=== PATIENT | female | born 1950 | race Caucasian/White ===

== ENCOUNTER 2017-03-23 13:05 | Emergency (ER) | payer MEDICARE, BC ==
[~2017-03-23] VITALS: Ht 162.6 cm; Wt 71.0 kg
[2017-03-23 13:11] VITALS: Ht 162.6 cm; Wt 71.0 kg
[2017-03-23] MEDS ORDERED: HYDROCODONE/APAP (5/325) TAB PO ONE (14:00)
--- NOTE | 2017-03-23 14:20 | ERD ---
ER Documentation Chief Complaint Date/Time DATE: 03/23/17 TIME: 14:18 Chief Complaint neck pain sp fall today, alert and oriented, redness to right side of face HPI This a 66-year-old female who presents to the emergency department today with her complaining of neck pain and some bruising around her right eye after falling earlier today. Patient states that she was cleaning up some cobwebs prior to getting the house ready for an open house when she lost her balance. States that she had a slight headache and felt dizzy afterwards. Denied any loss of consciousness. Denies any nausea or vomiting. Denies any fevers or chills or dysuria. She has not taken any medication for the pain. Denies any medical problems per ROS All systems reviewed and are negative except as per history of present illness. Medications Home Meds Active Scripts Neomycin Le/Bacitrac Zn/Poly (Triple Antibiotic Ointment) 1 Each Oint.pack, 1 EACH TP BID for 7 Days Prov:RADHA OCONNOR PA-C 03/23/17 Cyclobenzaprine Hcl* (Cyclobenzaprine Hcl*) 10 Mg Tablet, 10 MG PO QHS, #7 TAB Prov:RADHA OCONNOR PA-C 03/23/17 Naproxen* (Naprosyn*) 500 Mg Tablet, 500 MG PO BID Y for PAIN AND/OR INFLAMMATION, #30 TAB Prov:RADHA OCONNOR PA-C 03/23/17 Hydrocodone/Acetaminophen ([place] 5-325 Tablet) 1 Each Tablet, 1 TAB PO Q6H Y for PAIN, #10 TAB Prov:RADHA OCONNOR PA-C 03/23/17 PMhx/Soc History of Surgery: No Anesthesia Reaction: No Hx Neurological Disorder: No Hx Respiratory Disorders: No Hx Cardiac Disorders: No Hx Psychiatric Problems: No Hx Miscellaneous Medical Probl: No Hx Alcohol Use: No Hx Substance Use: No Hx Tobacco Use: No Physical Exam Vitals Vital Signs Date Time Temp Pulse Resp B/P Pulse Ox O2 Delivery O2 Flow Rate FiO2 03/23/17 13:11 97.7 76 18 150/91 97 Physical Exam Const: Sitting in wheelchair, no acute distress Head: Atraumatic Eyes: Normal Conjunctiva. PERRLA. EOM intact. Ecchymosis inferior orbit with tenderness to palpation ENT: Normal External Ears, Nose and Mouth.. No epistaxis. No hemotympanum. Neck: Full range of motion..~ No meningismus. Resp: Clear to auscultation bilaterally Cardio: Regular rate and rhythm, no murmurs Abd: Soft, non tender, non distended. Normal bowel sounds Skin: No petechiae or rashes right knee abrasion. Ecchymosis left forearm Back: No midline or flank tenderness Ext: No cyanosis, or edema full active range of motion at all joints. Neur: Awake and alert. Cranial nerves II through XII intact. No gait ataxia. Psych: Normal Mood and Affect Results 24 hrs Current Medications Medications (Trade) Dose Ordered Sig/Yasemin Route PRN Reason Start Time Stop Time Status Last Admin Dose Admin Acetaminophen/ Hydrocodone Bitart ([place] (5/325)) 1 tab ONCE ONCE PO 03/23/17 14:00 03/23/17 14:01 DC 03/23/17 13:57 DIAGNOSTIC IMAGING REPORT Patient: SAMMY RODRIGUEZ : 1950 Age: 66 Sex: F MR #: [id number] DOS: 03/23/17 0000 Ordering MD: RADHA OCONNOR PA-C Location: [facility] Room/Bed: PROCEDURE: CT Brain without contrast. CLINICAL INDICATION: Headache without trauma or fall TECHNIQUE: A CT of the brain was performed on a [employer] 64-slice CT scanner utilizing axial imaging from the skull base through the vertex without IV contrast. Multiplanar reformatted images were made. Images were reviewed on a PACS workstation. The CTDIvol is 43.58 mGy and the DLP is 720.23 mGycm. One of the following 3 dose reduction techniques were used: Automated exposure control; adjustment of the mA and/or kV according to patient size; or use of iterative reconstruction technique. COMPARISON: None available FINDINGS: There is no intracranial hemorrhage, mass effect, or midline shift. No extra- axial fluid collection is seen. The ventricles and sulci are age appropriate. Mild diffuse volume loss is present. The whalen-white matter junction is preserved. Mild decreased attenuation is present in the bilateral centrum semiovale and periventricular white matter compatible with mild chronic small vessel ischemic disease . Vascular calcifications are present of the bilateral intracranial internal carotid arteries. The visualized scalp and calvarium are normal. The bilateral orbits are normal. The bilateral paranasal sinuses, mastoid air cells and middle ear cavities are clear. IMPRESSION: 1. No evidence of acute intracranial hemorrhage, infarcts or acute intracranial pathology. 2. Mild chronic microvascular ischemic disease and diffuse volume loss 3. Mild atherosclerotic vascular disease RPTAT: [facility] .Yvette Parks MD, MD Date Time Electronically viewed and signed by .Yvette Parks MD, MD on 03/23/2017 14: 24 .C/ CC: RADHA OCONNOR PA-C DIAGNOSTIC IMAGING REPORT Patient: SAMMY RODRIGUEZ : 1950 Age: 66 Sex: F MR #: [id number] DOS: 03/23/17 0000 Ordering MD: RADHA OCONNOR PA-C Location: [facility] Room/Bed: PROCEDURE: CT Maxillofacial without Contrast CLINICAL INDICATION: Trauma, fall TECHNIQUE: Transaxial images were obtained through the maxillofacial region on a multi-slice scanner without the intravenous contrast administration. Sagittal and coronal re-formations were subsequently reconstructed. One or more of the following dose reduction techniques were used: - Automated exposure control. - Adjustment of the mA and/or kV according to patient size. - Use of iterative reconstruction technique. Radiation dose: CTDIvol = 43.58 mGy; DLP = 720.23 mGy-cm. COMPARISON: No prior studies are available for comparison. FINDINGS: Osseous structures: There is a nonaggressive appearing lesion with periosteal reaction seen along the anterior body of the mandible measuring 2.7 cm and medial lateral dimension, 0.5 cm in AP diameter and 1.3 cm in cranial caudad dimension. There is sclerosis involving the right lateral C4 vertebral body extending into the pedicle and lateral mass suspicious for a bone island. Mild degenerative cervical spine changes are noted. The osseous elements otherwise appear intact. Paranasal sinuses: Mucoperiosteal thickening is seen within the left maxillary antrum. The remaining paranasal sinuses are well-aerated. Mastoid air cells: Appear well pneumatized. Temporomandibular joints: Appear unremarkable. Orbits: The ocular globes, optic nerves, and intraorbital contents appear unremarkable. Soft tissues: Appear unremarkable. IMPRESSION: 1. There is a nonaggressive hypodensity seen at the anterior midline mandibular body measuring 2.7 x 1.3 x 0.5 cm with anterior periosteal reaction. This possibly represents an old subperiosteal hematoma. No acute fracture or osseous destruction is identified. 2. Mucoperiosteal thickening seen within the left maxillary sinus. 3. Degenerative cervical spine changes. Physician Gisella Date Time Electronically viewed and signed by Physician Gisella on 03/23/2017 14:34 RH/ CC: RADHA OCONNOR PA-C DIAGNOSTIC IMAGING REPORT Patient: SAMMY RODRIGUEZ : 1950 Age: 66 Sex: F MR #: [id number] DOS: 03/23/17 0000 Ordering MD: RADHA OCONNOR PA-C Location: [facility] Room/Bed: PROCEDURE: CT Cervical Spine. CLINICAL INDICATION: Pain without trauma or fall TECHNIQUE: A CT of the cervical spine was performed on a [employer] 64-slice CT scanner utilizing high-resolution axial imaging from the skull base through the cervical thoracic junction. Sagittal, coronal, and multiplanar reformatted images were made. CTDI mGy and DLP mGy-cm. One of the following 3 dose reduction techniques were used during this CT examination: automated exposure control; adjustment of the mA and /or kV according to patient size; or use of iterative reconstruciton technique COMPARISON: None available FINDINGS: There is straightening of the normal cervical lordosis . The visualized vertebral bodies are normal in height. The presence of a sclerotic or ossific density measuring 7 mm in transverse dimensions is present in the right C4 vertebral body and extending into the right pedicle. This may represent an enostoses, benign lesion however metastasis is not excluded. Consider MR to further evaluate. The intervertebral discs demonstrate severe disk space height loss and degenerative plate changes at C5-6 and moderate at C6-7. The posterior elements are intact and well aligned. The prevertebral soft tissues imaged are normal. The bilateral thyroid lobes and lung apices are clear. The specific axial levels are as follows: Occiput to C2: The visualized posterior fossa, skull base and bilateral mastoid air cells are clear. Atlantoaxial degenerative changes are present. No evidence for spinal canal stenosis is present. C2-3: The intervertebral discs is normal. Mild 3 mm broad-based bulge is present. The central canal, subarticular recess and neural foramen are patent. C3-4: Mild broad-based bulge is present the central canal, subarticular recess , and right neural foramen are patent. Mild left uncovertebral osteophyte and facet arthropathy contribute to mild left neural foraminal stenosis. C4-5: A 3 mm broad-based bulge is present. Left greater than right uncovertebral osteoarthropathy and facet arthropathy is present. AP canal dimension is 9 mm. This results in a mild central canal stenosis, bilateral subarticular recess stenosis, moderate to severe left and mild right neural foraminal stenosis. C5-6: Severe disk space height loss and degenerative endplate changes at C5-6 are present. Mild osteophytic bar and bulge is present. Bilateral uncovertebral osteophytes and facet arthropathy is present. AP canal dimension is 7.9 mm. This results in a moderate central canal stenosis, bilateral subarticular recess stenosis and severe bilateral neural foraminal stenosis. C6-7: Moderate disk space height loss degenerative endplate and disk changes are present. A 3 mm mild to moderate osteophytic bar and bulge is present. Bilateral uncovertebral osteophytes and facet arthropathy is present . AP canal dimension is 8.6 mm. This results in a mild central canal stenosis., bilateral subarticular recess stenosis and mild bilateral neural foraminal stenosis. C7-T1: The intervertebral discs is normal. The central canal, subarticular recess and neural foramen are patent. IMPRESSION: 1. No acute fractures or traumatic subluxations. 2. Straightening of the normal cervical lordosis 3. 7 mm right C4 vertebral body and pedicular indeterminate sclerotic lesion. Recommend additional imaging with MRI and bone scan as indicated. 4. Multilevel broad-based disk osteophyte complexes at the C2-3 through C6-7 levels with moderate central canal stenosis at C5-6 and mild at C4-5 and C6-7. 5. Multilevel neural foraminal stenosis at the C3-4 through C6-7 levels as indicated above. RPTAT: [facility] .Yvette Parks MD, Date Time Electronically viewed and signed by .Yvette Parks MD, on 03/23/2017 14: 42 .C/ CC: RADHA OCONNOR PA-C Procedures/[facility] This a 66-year-old female who presents to the emergency department today complaining of some bruising around her eyes and some neck pain after sustaining what appears to be a mechanical fall earlier today. Patient was reportedly cleaning some cobwebs down prior to her open house when she lost her balance and fell. Patient did not have any loss of consciousness and has no nausea or vomiting however she did report feeling dizzy initially and patient also did hit her face given the bruising on her right eye. Given this I did obtain images of the patient's head, neck and face CT cervical spine shows no acute fracture or traumatic subluxation. There is straightening of the normal goal cervical lordosis. There is a 7 mm right C4 vertebral body and pedicular indeterminate sclerotic lesion. There is multilevel broad-based disc osteophyte complexes at C2 through 3 and C6-7 levels with moderate canal central stenosis at C5 and 6 and mild at C4 and 5 and C6 and 7. There is multilevel neural foraminal stenosis at C3 and 4 through C6-7 levels as indicated above peer Head CT noncontrast shows no evidence of acute intercranial hemorrhage, infarcts or intracranial pathology. There is mild diffuse volume loss present with mild chronic microvascular ischemic disease and changes. CT facial bone so a nonaggressive hypodensity seen at the anterior midline of the mandibular body measuring 2.7 x 1.3 x 0.5 anterior periosteal reaction. This possibly represents an old subperiosteal hematoma. There is no acute fracture or osseous destruction. There is degenerative changes in the cervical spine. Orbits are unremarkable. Patient symptoms at this time most consistent with strain versus sprain versus contusion secondary to mechanical fall. All results were explained to the patient and her . Patient was given [place] here in the emergency department. I will give her a short course of [place], Naprosyn, Flexeril for home as well as some triple antibiotic ointment for her abrasion. At this time the patient is stable for discharge and outpatient management. Patient should follow up with their PCP in the next 1-2 days. They may return to the emergency department sooner for any persistent or worsening of symptoms. Patient and understood and agreed with the plan. Departure Diagnosis: Primary Impression: Fall Encounter type: initial encounter Qualified Code: W19.XXXA - Fall, initial encounter Additional Impression: Injury of neck Encounter type: initial encounter Qualified Code: S19.9XXA - Injury of neck , initial encounter Condition: Fair RADHA OCONNOR PA-C March 23, 2017 14:20
--- NOTE | 2017-03-23 14:24 | RADRPT ---
PROCEDURE: CT Brain without contrast. CLINICAL INDICATION: Headache without trauma or fall TECHNIQUE: A CT of the brain was performed on a [employer] 64-slice CT scanner utilizing axial imaging from the skull base through the vertex without IV contrast. Multiplanar reformatted images were made. Images were reviewed on a PACS workstation. The CTDIvol is 43.58 mGy and the DLP is 720 .23 mGycm. One of the following 3 dose reduction techniques were used: Automated exposure control; adjustment of the mA and/or kV according to patient size; or use of iterative reconstruction technique. COMPARISON: None available FINDINGS: There is no intracranial hemorrhage, mass effect, or midline shift. No extra-axial fluid collection is seen. The ventricles and sulci are age appropriate. Mild diffuse volume loss is present. The g ray-white matter junction is preserved. Mild decreased attenuation is present in the bilateral cent rum semiovale and periventricular white matter compatible with mild chronic small vessel ischemic di sease . Vascular calcifications are present of the bilateral intracranial internal carotid arteries . The visualized scalp and calvarium are normal. The bilateral orbits are normal. The bilateral para nasal sinuses, mastoid air cells and middle ear cavities are clear. IMPRESSION: 1. No evidence of acute intracranial hemorrhage, infarcts or acute intracranial pathology. 2. Mild chronic microvascular ischemic disease and diffuse volume loss 3. Mild atherosclerotic vascular disease RPTAT: [facility] .Yvette Parks MD, MD Date Time Electronically viewed and signed by .Yvette Parks MD, MD on 03/23/2017 14:24 .C/
--- NOTE | 2017-03-23 14:35 | RADRPT ---
PROCEDURE: CT Maxillofacial without Contrast CLINICAL INDICATION: Trauma, fall TECHNIQUE: Transaxial images were obtained through the maxillofacial region on a multi-slice scan er without the intravenous contrast administration. Sagittal and coronal re-formations were subseque ntly reconstructed. One or more of the following dose reduction techniques were used: - Automated exposure control. - Adjustment of the mA and/or kV according to patient size. - Use of iterative reconstruction technique. Radiation dose: CTDIvol = 43.58 mGy; DLP = 720.23 mGy-cm. COMPARISON: No prior studies are available for comparison. FINDINGS: Osseous structures: There is a nonaggressive appearing lesion with periosteal reaction seen along th e anterior body of the mandible measuring 2.7 cm and medial lateral dimension, 0.5 cm in AP diameter and 1.3 cm in cranial caudad dimension. There is sclerosis involving the right lateral C4 vertebral body extending into the pedicle and lateral mass suspicious for a bone island. Mild degenerative c ervical spine changes are noted. The osseous elements otherwise appear intact. Paranasal sinuses: Mucoperiosteal thickening is seen within the left maxillary antrum. The remainin g paranasal sinuses are well-aerated. Mastoid air cells: Appear well pneumatized. Temporomandibular joints: Appear unremarkable. Orbits: The ocular globes, optic nerves, and intraorbital contents appear unremarkable. Soft tissues: Appear unremarkable. IMPRESSION: 1. There is a nonaggressive hypodensity seen at the anterior midline mandibular body measuring 2.7 x 1.3 x 0.5 cm with anterior periosteal reaction. This possibly represents an old subperiosteal hem atoma. No acute fracture or osseous destruction is identified. 2. Mucoperiosteal thickening seen within the left maxillary sinus. 3. Degenerative cervical spine changes. Physician Gisella Date Time Electronically viewed and signed by Physician Gisella on 03/23/2017 14:34 /
--- NOTE | 2017-03-23 14:43 | RADRPT ---
PROCEDURE: CT Cervical Spine. CLINICAL INDICATION: Pain without trauma or fall TECHNIQUE: A CT of the cervical spine was performed on a [employer] 64-slice CT scanner utilizing hi gh-resolution axial imaging from the skull base through the cervical thoracic junction. Sagittal, c oronal, and multiplanar reformatted images were made. CTDI mGy and DLP mGy-cm. One of the following 3 dose reduction techniques were used during this CT examination: automated exp osure control; adjustment of the mA and /or kV according to patient size; or use of iterative recons truciton technique COMPARISON: None available FINDINGS: There is straightening of the normal cervical lordosis . The visualized vertebral bodies are normal in height. The presence of a sclerotic or ossific density measuring 7 mm in transverse dimensions is present in the right C4 vertebral body and extending into the right pedicle. This may represent a n enostoses, benign lesion however metastasis is not excluded. Consider MR to further evaluate. The intervertebral discs demonstrate severe disk space height loss and degenerative plate changes at C5 -6 and moderate at C6-7. The posterior elements are intact and well aligned. The prevertebral soft tissues imaged are normal. The bilateral thyroid lobes and lung apices are cl ear. The specific axial levels are as follows: Occiput to C2: The visualized posterior fossa, skull base and bilateral mastoid air cells are clear . Atlantoaxial degenerative changes are present. No evidence for spinal canal stenosis is present. C2-3: The intervertebral discs is normal. Mild 3 mm broad-based bulge is present. The central can al, subarticular recess and neural foramen are patent. C3-4: Mild broad-based bulge is present the central canal, subarticular recess, and right neural fo ramen are patent. Mild left uncovertebral osteophyte and facet arthropathy contribute to mild left neural foraminal stenosis. C4-5: A 3 mm broad-based bulge is present. Left greater than right uncovertebral osteoarthropathy and facet arthropathy is present. AP canal dimension is 9 mm. This results in a mild central canal stenosis, bilateral subarticular recess stenosis, moderate to severe left and mild right neural for aminal stenosis. C5-6: Severe disk space height loss and degenerative endplate changes at C5-6 are present. Mild os teophytic bar and bulge is present. Bilateral uncovertebral osteophytes and facet arthropathy is pr esent. AP canal dimension is 7.9 mm. This results in a moderate central canal stenosis, bilateral s ubarticular recess stenosis and severe bilateral neural foraminal stenosis. C6-7: Moderate disk space height loss degenerative endplate and disk changes are present. A 3 mm m ild to moderate osteophytic bar and bulge is present. Bilateral uncovertebral osteophytes and facet arthropathy is present . AP canal dimension is 8.6 mm. This results in a mild central canal stenos is., bilateral subarticular recess stenosis and mild bilateral neural foraminal stenosis. C7-T1: The intervertebral discs is normal. The central canal, subarticular recess and neural harika en are patent. IMPRESSION: 1. No acute fractures or traumatic subluxations. 2. Straightening of the normal cervical lordosis 3. 7 mm right C4 vertebral body and pedicular indeterminate sclerotic lesion. Recommend additional imaging with MRI and bone scan as indicated. 4. Multilevel broad-based disk osteophyte complexes at the C2-3 through C6-7 levels with moderate c entral canal stenosis at C5-6 and mild at C4-5 and C6-7. 5. Multilevel neural foraminal stenosis at the C3-4 through C6-7 levels as indicated above. RPTAT: [facility] .Yvette Parks MD, Date Time Electronically viewed and signed by .Yvette Parks MD, MD on 03/23/2017 14:42 .C/
[2017-03-23] MEDS ORDERED: NAPR-260 PO (14:58)
[2017-03-23] MEDS ORDERED: HYDR-906 PO (14:58)
[2017-03-23] MEDS ORDERED: NEOM1PAC TP (14:59)
[2017-03-23] MEDS ORDERED: CYCL-319 PO (14:59)
== END 2017-03-23 15:27 | disposition home or self-care (01) ==
LOC: FTE 13:05
DX: S19.9XXA Unspecified injury of neck, initial encounter (principal); R51 Headache; W01.0XXA Fall on same level from slipping, tripping and stumbling without subsequent striking against object, initial encounter; Y92.009 Unspecified place in unspecified non-institutional (private) residence as the place of occurrence of the external cause
CPT/HCPCS: 70450; 70486; 72125